=== PATIENT | female | born 1940 | race Two or more races ===

== ENCOUNTER 2021-06-19 07:44 | Day surgery (SDC) | payer MEDICARE ==
[2021-06-19] VITALS (13 sets, daily range): BP systolic 89–170; BP diastolic 38–116
[~2021-06-19] VITALS: Ht 157.5 cm; Wt 82.4 kg
[~2021-06-19 07:44] MED LIST: ASPI-611 PO; ATOR40TA71 PO; CALC-1215 PO; CARV-49 PO; FURO40TA4 PO; GLIP10TA11 PO; LOSA100T57 PO; MAGN400C PO; POTA-207 PO; VITA-268 PO
[2021-06-19] MEDS ORDERED: LORazepam 0.5 MG tablet PO PRN (08:40)
[2021-06-19] MEDS ORDERED: diphenhydrAMINE 25mg capsule PO PRN (08:40)
[2021-06-19] MEDS ORDERED: verapamil 2.5 mg/ml inj IV ONE (08:54)
[2021-06-19] MEDS ORDERED: nitroGLYCERIN-Tridil 50MG/D5W 250 ML IV ONE (08:54)
[2021-06-19] MEDS ORDERED: fentaNYL/PF 50MCG/1 ML 2ML syringe ONE ×2 (08:54→10:17)
[2021-06-19] MEDS ORDERED: midazolam 1 mg/ML 2ml injection ONE (08:54)
[2021-06-19] MEDS ORDERED: LIDOcaine 1% (10mg/ml)w/preservative injection 20ml MDV ONE (08:54)
[2021-06-19] MEDS ORDERED: heparin 1,000unit/ml 10ml vial 10 ML ONE (08:54)
[2021-06-19] MEDS ORDERED: iohexol 350MG/ML 100ml bottle IV ONE ×2 (08:54→10:30)
[2021-06-19] MEDS ORDERED: iohexol 350 MG/ML 50ML vial IV ONE (08:54)
[2021-06-19] MEDS ORDERED: ondansetron/PF 4mg/2ml inj IV PRN (11:50)
[2021-06-19] MEDS ORDERED: OXAZEpam 15mg capsule PO PRN (11:50)
[2021-06-19] MEDS ORDERED: acetaminophen 325mg tablet PO PRN (11:50)
[2021-06-19] MEDS ORDERED: HYDROcodone/acetaminophen 10/325mg tab PO PRN (11:50)
[2021-06-19] MEDS ORDERED: HYDROcodone/acetaminophen 5mg/325mg tablet PO PRN (11:50)
[2021-06-19] MEDS ORDERED: proCHLORperazine 10 MG/2 ml inj IV PRN (11:50)
[2021-06-19 11:58] LABS: ISTAT Hct MIX 34 %PCV (35-48); ISTAT O2 SATURATION MIX VENOUS 67 % (60-80); ISTAT SOURCE BLNK
[2021-06-19 11:59] LABS: ISTAT HGB ART 11.6 g/dl (12.0-16.0); ISTAT Hct ART 34 %PCV (35-48); ISTAT O2 SATURATION ARTERIAL 98 % (95-98); ISTAT SOURCE BLNK
== END 2021-06-19 14:30 | disposition home or self-care (01) ==
LOC: SSTAY O 07:44
PROVIDERS: ATTEND Internal Medicine Cardiovascular Disease
DX: R06.02 Shortness of breath (principal); R53.83 Other fatigue; I25.810 Atherosclerosis of coronary artery bypass graft(s) without angina pectoris; I35.0 Nonrheumatic aortic (valve) stenosis; I11.0 Hypertensive heart disease with heart failure; I50.30 Unspecified diastolic (congestive) heart failure; E78.49 Other hyperlipidemia; E11.9 Type 2 diabetes mellitus without complications; E66.9 Obesity, unspecified; Z68.33 Body mass index [BMI] 33.0-33.9, adult; Z98.890 Other specified postprocedural states; Z79.899 Other long term (current) drug therapy; Z79.84 Long term (current) use of oral hypoglycemic drugs; Z83.3 Family history of diabetes mellitus; Z82.49 Family history of ischemic heart disease and other diseases of the circulatory system
CPT/HCPCS: 76937; 82803; 82948; 85014; 93005; 93461; 99152; 99153; C1751; C1769; C1894; J1644; J2250; J3010; J3490; Q0163; Q9967; A4620; A5120; A6258